=== PATIENT | male | born 1935 | race Caucasian/White ===

== ENCOUNTER → 2017-04-11 | Outpatient (CLI) | payer OTHER ==
[~2017-04-11] MED LIST: AKWA TEARS EYE15 ML OPHTHALMIC; ALPRAZOLAM 0.0.25 M1; AMBIEN 5 MG TABL5 M1 PO; AMLODIPINE BESYL5 MG PO; ASPIRIN81 M2 PO; ATIVAN1 MG PO; BRINTELLIX10 MG PO; CARBAMAZEPINE100 M2; CARBAMAZEPINE200 M2 PO; CELEXA 20 MG TA20 MG PO; CELEXA20 MG PO; CIALIS20 MG PO; CIPROFLOXACIN500 M1 PO; CLONAZEPAM 0.50.5 M1 PO; CLONIDINE0.1 PO; COUMADIN7.5 MG PO; COZAAR 25 MG TA25 M2; DEPAKOTE ER500 MG PO; DESYREL150 MG PO; DESYREL300 MG PO; DESYREL50 MG PO; DETROL1 MG; FLAGYL500 MG PO; GABAPENTIN 100100 MG PO; HYDROCODON-ACE1 EAC5 PO; IBUPROFEN 800800 M1 PO; LASIX 40 MG TAB40 M2 PO; LITHIUM CARBON150 MG; LITHIUM CARBON300 M3 PO; LOPRESSOR25; LOSARTAN POTAS100 MG PO; MELATONIN5 M1 PO; MINOXIDIL2.5 MG PO; MYRBETRIQ25 MG PO; NAFTIN45 GM TOP; NEURONTIN 300300 M1 PO; NIFEDICAL XL60 MG PO; NIZORAL120 ML TOP; NIZORAL120 ML TRANSDERM; NORVASC 2.5 MG2.5 M1; NORVASC10 MG PO; PERCOCET 5-3251 EACH PO; POTASSIUM20; REQUIP 1 MG TABL1 M1 PO; RESTASIS1 EACH OPHTHALMIC; REXULTI3 MG PO; SIMVASTATIN40 MG PO; SYSTANE LIQUID15 ML OPHTHALMIC; TAMSULOSIN HCL0.4 M1 PO; TRAMADOL 50 MG50 MG PO; TRAZODONE 150150 M1; TRAZODONE HCL PO; ZOFRAN ODT4 MG PO; ZYPREXA 2.2.5 MG/1 T PO
== END ==
LOC: ULTRA 12:43
DX: M79.89 Other specified soft tissue disorders (principal); R60.9 Edema, unspecified

== ENCOUNTER 2018-09-27 12:21 | Emergency (ER) | payer OTHER ==
[~2018-09-27] VITALS: Ht 180.3 cm; Wt 90.7 kg
--- NOTE | ~2018-09-27 | EKG ---
[facility] [place] [address] ELECTROCARDIOGRAM REPORT Name: TYREL DEL RIO [id number] Admission: 09/27/18 Attend Phys: Discharge: Date of : 35 Report #: [id number] THIS REPORT FOR: //name// [facility] ED Test Date: 2018-09-27 Test Time: 13:29:57 Pat Name: TYREL DEL IRO Department: Room: Gender: Language Asst: [facility] : 1935 Requested By: Ena Giron Order Number: [id number] MD: Measurements Intervals [place] Rate: 78 P: 52 NJ: 306 QRS: -26 QRSD: 151 T: 58 QT: 426 QTc: 486 Interpretive Statements Sinus rhythm Prolonged [place] interval Right bundle branch block Compared to ECG 12/07/2016 10:17:21 No significant changes [email or web address] By: 1329 1329 Kalyn Mccain MD /EPI
[2018-09-27 12:56] LABS: ABSOLUTE NEUTROPHILS 3.4 thou/uL (1.4-8.2); BASOPHILS 0.7 % (0.0-2.0); EOSINOPHILS 2.1 % (0.0-3.0); HEMATOCRIT 43.9 % (42.0-52.0); HEMOGLOBIN 15.1 gm/dL (14.0-18.0); LYMPHOCYTES 32.8 % (24.0-44.0); MCH 32.6 pg (26.0-34.0); MCHC 34.3 g/dL (28.0-37.0); MCV 94.9 fL (80.0-100.0); MONOCYTES 9.1 % (1.0-8.0); PLATELET COUNT 156 thou/uL (150-400); POLYS 55.3 % (36.0-66.0); RBC 4.62 mil/uL (4.50-6.00); RDW 13.2 % (10.5-14.5); WBC 6.2 thou/uL (4.0-11.0)
[2018-09-27 13:02] LABS: ANION GAP 10 mmol/L (7-16); BUN 30 mg/dL (7-18); CALCIUM 9.2 mg/dL (8.5-10.1); CHLORIDE 106 mmol/L (98-107); CO2 25 mmol/L (21-32); CREATININE 1.6 mg/dL (0.7-1.3); GLUCOSE 153 mg/dL (74-106); POTASSIUM 3.8 mmol/L (3.5-5.1); SODIUM 141 mmol/L (136-145)
[2018-09-27 13:11] LABS: ALBUMIN 3.2 g/dL (3.4-5.0); PROTIME 9.9 Seconds (9.3-11.4); SGOT 15 U/L (15-37); SGPT 19 U/L (30-65); TOTAL BILIRUBIN 0.6 mg/dL (<0.1-1.0); TOTAL PROTEIN 6.8 g/dL (6.4-8.2); TROPONIN-I <0.06 ng/mL (<0.06)
[2018-09-27 14:55] LABS: URINE BILIRUBIN NEGATIVE (Negative); URINE BLOOD NEGATIVE (Negative); URINE CLARITY CLEAR; URINE COLOR YELLOW; URINE GLUCOSE-RANDOM* NEGATIVE (Negative); URINE KETONES NEGATIVE (Negative); URINE LEUKOCYTES-REFLEX NEGATIVE (Negative); URINE NITRITE-REFLEX NEGATIVE (Negative); URINE PROTEIN (DIPSTICK) NEGATIVE (Negative); URINE SPECIFIC GRAVITY 1.015 (1.005-1.035)
[2018-09-27 15:54] VITALS: BP 123/74
[2018-09-28] MEDS ORDERED: DIVALPROEX SOD500 MG PO (05:27)
[2018-09-28] MEDS ORDERED: ANTIVERT25 MG PO (06:26)
== END 2018-09-27 15:56 | disposition home or self-care (01) ==
LOC: ER 12:21
PROVIDERS: Physician Assistant
DX: I95.1 Orthostatic hypotension (principal); R42 Dizziness and giddiness; I12.9 Hypertensive chronic kidney disease with stage 1 through stage 4 chronic kidney disease, or unspecified chronic kidney disease; N18.9 Chronic kidney disease, unspecified; F31.9 Bipolar disorder, unspecified; G47.30 Sleep apnea, unspecified; F41.9 Anxiety disorder, unspecified

== ENCOUNTER 2018-09-28 04:02 | Emergency (ER) | payer OTHER ==
[~2018-09-28] VITALS: Ht 177.8 cm; Wt 90.7 kg
--- NOTE | ~2018-09-28 | EKG ---
[address] [address] ELECTROCARDIOGRAM REPORT Name: TYREL DEL RIO Room #: [facility]#: [id number] Admission: 09/28/18 Attend Phys: Discharge: 09/28/18 Date of : 35 Report #: [id number] THIS REPORT FOR: //name// [facility] ED Test Date: 2018-09-28 Test Time: 04:17:07 Pat Name: TYREL DEL RIO Department: Room: Gender: M Test Lead: [email or web address] : 1935 Requested By: Emmie Benitez Order Number: [id number] MD: Maikel Bain Measurements Intervals [place] Rate: 73 P: 28 ND: 316 QRS: -37 QRSD: 141 T: 74 QT: 428 QTc: 472 Interpretive Statements Sinus rhythm Prolonged ND interval Right bundle branch block Compared to ECG 12/07/2016 10:17:21 No significant changes Electronically Signed On 09-28-2018 20:39:13 GRINDER NEEDLE TIP by Maikel Bain [email or web address] <ELECTRONICALLY SIGNED> By: Maikel Bain MD 09/28/189 6 0417 Maikel Bain MD /MOHIT
[2018-09-28] MEDS ORDERED: DIVALPROEX SOD500 MG PO (05:27)
[2018-09-28] MEDS ORDERED: ANTIVERT25 MG PO (06:26)
[2018-09-28 06:47] VITALS: BP 178/99
== END 2018-09-28 06:47 | disposition home or self-care (01) ==
LOC: ER 04:02
DX: R42 Dizziness and giddiness (principal); G47.30 Sleep apnea, unspecified; F31.9 Bipolar disorder, unspecified; I10 Essential (primary) hypertension; F41.9 Anxiety disorder, unspecified; Z98.890 Other specified postprocedural states

== ENCOUNTER → 2020-06-24 | Outpatient (CLI) | payer OTHER ==
[~2020-06-24] MED LIST changes: +ANTIVERT25 MG PO; +DIVALPROEX SOD500 MG PO
== END ==
LOC: EDSTATUS 09:17 → MRI 09:17
PROVIDERS: ATTEND Nurse Practitioner
DX: S73.102A Unspecified sprain of left hip, initial encounter (principal); M43.08 Spondylolysis, sacral and sacrococcygeal region; M16.11 Unilateral primary osteoarthritis, right hip; N32.3 Diverticulum of bladder; K57.30 Diverticulosis of large intestine without perforation or abscess without bleeding; M71.352 Other bursal cyst, left hip; X58.XXXA Exposure to other specified factors, initial encounter; Y93.89 Activity, other specified; Y92.89 Other specified places as the place of occurrence of the external cause; Y99.8 Other external cause status

== ENCOUNTER → 2020-09-02 | Outpatient (CLI) | payer OTHER | LOC: SJCVC 12:38 | PROVIDERS: ATTEND Internal Medicine Cardiovascular Disease | DX: R94.31 Abnormal electrocardiogram [ECG] [EKG] (principal); I45.10 Unspecified right bundle-branch block; I10 Essential (primary) hypertension; E78.00 Pure hypercholesterolemia, unspecified; G47.33 Obstructive sleep apnea (adult) (pediatric); Z82.49 Family history of ischemic heart disease and other diseases of the circulatory system; Z79.899 Other long term (current) drug therapy ==

== ENCOUNTER → 2020-10-28 | Outpatient (CLI) | payer OTHER | LOC: SJCVCIMAG 08:53 | PROVIDERS: ATTEND Internal Medicine Cardiovascular Disease | DX: I35.1 Nonrheumatic aortic (valve) insufficiency (principal); I44.0 Atrioventricular block, first degree; I45.10 Unspecified right bundle-branch block; I11.9 Hypertensive heart disease without heart failure; R94.31 Abnormal electrocardiogram [ECG] [EKG]; G47.33 Obstructive sleep apnea (adult) (pediatric); I71.2 Thoracic aortic aneurysm, without rupture; Z79.899 Other long term (current) drug therapy ==

== ENCOUNTER 2020-11-21 08:20 | Emergency (ER) | payer OTHER ==
[~2020-11-21] VITALS: Ht 177.8 cm; Wt 99.8 kg
[2020-11-21] MEDS ORDERED: HYDROCODON-ACE1 EA11 PO (10:24)
[2020-11-21 10:49] VITALS: BP 139/70
== END 2020-11-21 10:49 | disposition home or self-care (01) ==
LOC: ER 08:20
DX: S22.41XA Multiple fractures of ribs, right side, initial encounter for closed fracture (principal); L70.8 Other acne; I10 Essential (primary) hypertension; Z79.899 Other long term (current) drug therapy; Z98.890 Other specified postprocedural states; W01.0XXA Fall on same level from slipping, tripping and stumbling without subsequent striking against object, initial encounter; Y93.89 Activity, other specified; Y92.091 Bathroom in other non-institutional residence as the place of occurrence of the external cause; Y99.9 Unspecified external cause status

== ENCOUNTER 2021-04-02 13:07 | Emergency (ER) | payer OTHER ==
[~2021-04-02] VITALS: Ht 177.8 cm; Wt 99.8 kg
[~2021-04-02 13:07] MED LIST changes: +HYDROCODON-ACE1 EA11 PO
[2021-04-02] MEDS ORDERED: PROSCAR 5MG TABL5 M1 PO (13:28)
[2021-04-02] MEDS ORDERED: DONEPEZIL HCL 55 M1 PO (13:29)
[2021-04-02] MEDS ORDERED: NEURONTIN 300M300 M2 PO (13:29)
[2021-04-02] MEDS ORDERED: MELOXICAM7.5 MG PO (13:30)
[2021-04-02] MEDS ORDERED: TROSPIUM CHLORI20 MG PO (13:30)
[2021-04-02] MEDS ORDERED: COZAAR 25 MG TA25 M2 PO (13:30)
[2021-04-02] MEDS ORDERED: NORCO5 PO (14:37)
[2021-04-02 14:43] VITALS: BP 180/92
== END 2021-04-02 14:44 | disposition home or self-care (01) ==
LOC: ER 13:07
DX: S22.41XA Multiple fractures of ribs, right side, initial encounter for closed fracture (principal); M25.511 Pain in right shoulder; Z79.899 Other long term (current) drug therapy; W10.9XXA Fall (on) (from) unspecified stairs and steps, initial encounter; Y93.89 Activity, other specified; Y92.89 Other specified places as the place of occurrence of the external cause; Y99.8 Other external cause status

== ENCOUNTER 2021-10-14 15:10 | Inpatient (IN) | payer OTHER ==
[~2021-10-14] VITALS: Ht 177.8 cm; Wt 93.0 kg
[~2021-10-14 15:10] MED LIST changes: +COZAAR 25 MG TA25 M2 PO; +DONEPEZIL HCL 55 M1 PO; +MELOXICAM7.5 MG PO; +NEURONTIN 300M300 M2 PO; +NORCO5 PO; +PROSCAR 5MG TABL5 M1 PO; +TROSPIUM CHLORI20 MG PO
[2021-10-14 15:14] VITALS: BP 179/99
[2021-10-14 15:51] LABS: ABSOLUTE NEUTROPHILS 5.1 thou/uL (1.4-8.2); BASOPHILS 0.6 % (0.0-2.0); EOSINOPHILS 0.1 % (0.0-3.0); HEMATOCRIT 43.9 % (42.0-52.0); HEMOGLOBIN 14.6 gm/dL (14.0-18.0); LYMPHOCYTES 19.6 % (24.0-44.0); MCH 31.2 pg (26.0-34.0); MCHC 33.2 g/dL (28.0-37.0); MCV 94.1 fL (80.0-100.0); MONOCYTES 13.8 % (1.0-8.0); PLATELET COUNT 147 thou/uL (150-400); POLYS 65.9 % (36.0-66.0); RBC 4.67 mil/uL (4.50-6.00); RDW 13.6 % (10.5-14.5); WBC 7.8 thou/uL (4.0-11.0)
[2021-10-14 16:03] LABS: CALCIUM 8.9 mg/dL (8.5-10.1); CREATININE 1.7 mg/dL (0.7-1.3); POTASSIUM 4.2 mmol/L (3.5-5.1)
[2021-10-14 16:09] LABS: ALBUMIN 3.3 g/dL (3.4-5.0); MAGNESIUM 1.6 mg/dL (1.8-2.4); TOTAL BILIRUBIN 0.5 mg/dL (0.2-1.0); TOTAL PROTEIN 6.9 g/dL (6.4-8.2)
[2021-10-14 16:30] LABS: APTT 27.9 Seconds (24.5-32.8); INR 0.96; PROTIME 10.5 Seconds (10.5-12.1)
[2021-10-14 20:00] VITALS: BP 207/88
[2021-10-14 21:00] VITALS: BP 207/88
[2021-10-15] VITALS: BP 207/88
[2021-10-15 04:00] VITALS: BP 187/95
[2021-10-15 09:00] VITALS: BP 202/102
[2021-10-15 14:54] LABS: FOLIC ACID 15.7 ng/mL (8.6-58.9)
[2021-10-15 16:11] LABS: BE(vivo) -3.3 mmol/L (-2 to +3); HCO3 20.1 mmol/L (22.0-26.0); PO2 74.4 mmHg (80.0-100.0); pH 7.415 (7.360-7.450); sO2 95.3 % (92.0-98.0)
[2021-10-15 22:00] VITALS: BP 183/93
[2021-10-15 23:45] VITALS: BP 180/92
[2021-10-16 03:58] VITALS: BP 190/100
--- NOTE | 2021-10-16 06:10 | NUR ---
PT SLEPT MOST OF THE NIGHT. AT TIMES CONFUSED AND NEEDED REORIENTATION. C/O HEADACHE. PRN PAIN MEDICATION GIVEN. HYDRALAZINE GIVEN FOR HTN. INCONTINENT OF URINE. PT REMAINS IN COVID ISOLATION. SPO2 >92% ON RA. WILL GIVE REPORT TO ONCOMING NURSE.
[2021-10-16 06:47] LABS: ABSOLUTE NEUTROPHILS 3.6 thou/uL (1.4-8.2); BASOPHILS 0.6 % (0.0-2.0); EOSINOPHILS 0.7 % (0.0-3.0); HEMATOCRIT 42.2 % (42.0-52.0); LYMPHOCYTES 23.7 % (24.0-44.0); MCH 31.1 pg (26.0-34.0); MCHC 33.3 g/dL (28.0-37.0); MCV 93.5 fL (80.0-100.0); MONOCYTES 11.3 % (1.0-8.0); PLATELET COUNT 140 thou/uL (150-400); POLYS 63.7 % (36.0-66.0); RBC 4.51 mil/uL (4.50-6.00); RDW 13.5 % (10.5-14.5); WBC 5.7 thou/uL (4.0-11.0)
[2021-10-16 07:03] LABS: ALBUMIN 2.7 g/dL (3.4-5.0); ANION GAP 12 mmol/L (7-16); BUN 23 mg/dL (7-18); CALCIUM 7.8 mg/dL (8.5-10.1); CHLORIDE 109 mmol/L (98-107); CO2 23 mmol/L (21-32); CREATININE 1.3 mg/dL (0.7-1.3); DIRECT BILIRUBIN < 0.1 mg/dL (<0.1-0.2); GLUCOSE 100 mg/dL (74-106); MAGNESIUM 1.6 mg/dL (1.8-2.4); PHOSPHORUS 3.7 mg/dL (2.6-4.7); POTASSIUM 4.1 mmol/L (3.5-5.1); SGOT 18 U/L (15-37); SGPT 14 U/L (16-63); SODIUM 144 mmol/L (136-145); TOTAL BILIRUBIN 0.3 mg/dL (0.2-1.0); TOTAL PROTEIN 6.1 g/dL (6.4-8.2)
[2021-10-16 07:07] LABS: INR 0.97; PROTIME 10.6 Seconds (10.5-12.1)
--- NOTE | 2021-10-16 07:19 | EKG ---
[place] [address] [facility] [place] [address] ELECTROCARDIOGRAM REPORT Name: TYREL DEL RIO Room #: 170-15 ADM IN M.R.#: [id number] Admission: 10/14/21 Attend Phys: Sim Bashir MD Discharge: Date of : 35 Report #: [id number] [facility] ED Test Date: 2021-10-14 Test Time: 15:40:45 Pat Name: TYREL DEL RIO Department: Room: 170 Gender: M Network Developer: joão : 1935 Requested By: Jose Stack Order Number: [id number] MD: Nico Joaquin Measurements Intervals [place] Rate: 78 P: 32 RI: 326 QRS: -40 QRSD: 148 T: 38 QT: 416 QTc: 474 Interpretive Statements Sinus rhythm Prolonged RI interval RBBB Probable left ventricular hypertrophy Compared to ECG 09/28/2018 04:17:07 Left anterior fascicular block now present Electronically Signed On 10-16-2021 7:19:35 VIDEO GAME ANIMATOR by Nico Joaquin [email or web address] <ELECTRONICALLY SIGNED> By: Nico Joaquin MD, [facility] 10/16/21 0719 1540 1540 Nico Joaquin MD, FACC /EPI
[2021-10-16 15:19] VITALS: BP 159/60
[2021-10-16] MEDS ORDERED: TROSPIUM CHLORI20 MG PO (15:40)
[2021-10-16] MEDS ORDERED: SEROQUEL 100 M100 M1 PO (15:41)
[2021-10-16] MEDS ORDERED: DEPAKOTE500 MG PO (15:41)
[2021-10-16] MEDS ORDERED: RISPERDAL 1 MG T1 MG PO (15:42)
[2021-10-16] MEDS ORDERED: FLOMAX0.4 MG PO (15:42)
[2021-10-16] MEDS ORDERED: NEURONTIN600 MG PO (15:42)
[2021-10-16] MEDS ORDERED: PROTOPIC OINTME30 GM TOP (15:43)
[2021-10-16] MEDS ORDERED: MOBIC7.5 MG PO (15:43)
[2021-10-16 22:57] VITALS: BP 172/86
--- NOTE | 2021-10-17 00:04 | NUR ---
CURRENTLY ON ROOM AIR. 93% ON ROOM AIR. DENIES PAIN. DIFFICULTY ASKING QUESTIONS SECONDARY TO POOR HEARING. HE GAIN LITTLE TO NO BENEFIT FROM HIS HEARING AIDS. HE IS RECIVING HIS REMDESIVIR AT THIS TIME. ORIENTED TO ROOM AND SURROUNDINGS.
[2021-10-17 05:16] VITALS: BP 143/77
[2021-10-17 07:04] LABS: ALBUMIN 2.6 g/dL (3.4-5.0); CALCIUM 7.9 mg/dL (8.5-10.1); CREATININE 1.3 mg/dL (0.7-1.3); DIRECT BILIRUBIN 0.1 mg/dL (<0.1-0.2); PHOSPHORUS 3.9 mg/dL (2.5-4.9); POTASSIUM 3.8 mmol/L (3.5-5.1); TOTAL BILIRUBIN 0.3 mg/dL (0.2-1.0); TOTAL PROTEIN 5.9 g/dL (6.4-8.2)
[2021-10-17 08:09] VITALS: BP 175/86
--- NOTE | 2021-10-17 09:49 | HC ---
[facility] [place] [address] CONSULTATION Name: TYREL DEL RIO Room #: 351-P ADM IN M.R.#: [id number] Admission: 10/14/21 Attend Phys: Sim Bashir MD Discharge: Date of : 35 Report #: [id number] THIS REPORT FOR: cc: Gabe Siu MD, Neal A. MD Kerstein, Andrew H. DO ~ DATE OF SERVICE: 10/15/2021 INPATIENT PSYCHIATRY CL CONSULTATION PRIMARY ATTENDING: Sim Bashir MD and his SWITCH FOREMAN Cee Luna, additional solutions consultant on this case has been Dr. Terry Dupree, Neurology. CONSULTING PSYCHIATRIST: Carson May DO REASON FOR CONSULTATION: Altered mental status. SOURCES OF INFORMATION: Bedside interview with the patient and personal protective equipment, telephone conversation with his daughter, Dacia, review of the medical chart as well as numerous consultations. CHIEF COMPLAINT: "I came for dehydration." HISTORY OF PRESENT ILLNESS: This is an 86-year-old, age-appearing male, in room 15. He is boarding in the Emergency Room at [facility]. The patient was brought in yesterday for evaluation of "altered mental status." He lives with his at home and the noted he was much more lethargic than usual, was having difficulty speaking. Unclear last known normal; however, the believes it was sometime yesterday, the patient was able to answer basic questions. Denied active complaints. The patient was reported to have his Seroquel adjusted due to recent manic episode when I clarified what kind of episode this was with the daughter, she said he did not require psychiatric hospitalization. He had been under treatment of the psychiatrist, Dr. Mike Yang who about 6 weeks ago of [employer], currently his primary care provider is Dr. Gabe Siu. The patient denied fever or chills. Denies chest pain, shortness of breath. There is a history of transient ischemic attacks. 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 SURGICAL HISTORY: Lumbar laminectomy. 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 His daughter reported to me that Dr. Yang prior to his had been filling back his medications. His home medications [address] [address] CONSULTATION Name: TYREL DEL RIO Room #: 351-P [facility] IN .R.#: [id number] Admission: 10/14/21 Attend Phys: Sim Bashir MD Discharge: Date of : 35 Report #: [id number] are noted to be carbamazepine, tamsulosin, tadalafil, which is Cialis, amlodipine, clonazepam, Depakote, zolpidem, vortioxetine, brexpiprazole, Depakote, finasteride, gabapentin, donepezil, losartan, meloxicam and trospium. I do not think that is an accurate medication list. ALLERGIES: No known allergies. SOCIAL HISTORY: No smoking. Drinks alcohol. It does not sound like there is abuse of scenario. No recreational drug use. REVIEW OF SYSTEMS: From the ER yesterday: CONSTITUTIONAL: Denies fever, chills, malaise, or unexplained weight change. EYES: Denies eye pain, visual change, or discharge. HEENT: Denies hearing changes, ear drainage, ear infections, ear pain, neck pain or neck stiffness. RESPIRATORY: Denies cough, shortness of breath, hemoptysis or respiratory distress. CARDIOVASCULAR: Denies chest pain, chest pain with exertion or edema. GASTROINTESTINAL: Denies abdominal pain, nausea, vomiting or diarrhea. GENITOURINARY: Denies burning, frequency or dysuria. MUSCULOSKELETAL: Denies back pain, joint pain, muscle weakness or myalgias. SKIN: Denies rash. NEUROLOGIC: Denies weakness, headaches or loss of consciousness. Otherwise, 10-point review of systems was negative in the ER. His weight is 99.79 kilos. PHYSICAL EXAMINATION: NEUROLOGIC: His physical exam was grossly normal on the neuro exam, 5/5 bilateral upper extremities. No cranial nerve deficit No visual gonzalez, no limb ataxia. No dysarthria. The patient is able to repeat all words well. He does have aphasia, has significant difficulty with word finding. He is able to identify objects. He is unable to describe the scene and has difficulty even in calling his name. This was all in the ER. His NIH stroke scale was a total score of 4. EKG was done showed right bundle branch block, non-STEMI. Intervals from electrocardiogram are QTc 474, QT 416, [place] interval prolonged at 326 milliseconds. So, he had a first-degree AV block and right bundle branch block. VITAL SIGNS: Temperature 36.8, pulse 75, respirations 16, BP 183/93, previously it was 202/110. GENERAL: Well-developed, age, ill-appearing male, in hospital [facility], in hospital bed in the Emergency Room. MENTAL STATUS EXAMINATION: This is a well-developed, somewhat ill-appearing male. Attention and concentration fair. He is hard of hearing. [facility] [place] [address] CONSULTATION Name: TYREL DEL RIO Room #: 351-P ADM IN M.R.#: [id number] Admission: 10/14/21 Attend Phys: Sim Bashir MD Discharge: Date of : 35 Report #: [id number] Speech normal rate, volume, and tone. Thought Process: Linear and goal directed. Thought content focused on watching football. Stated he came to the ER for dehydration. Denied suicidal or homicidal ideation, auditory or visual type hallucinations and helplessness, hopelessness. Mood and affect were okay, congruent, euthymic, fair range. Memory not formally tested. Insight and judgment fair to limited. Fund of knowledge average. DIAGNOSES: At this time, neurocognitive disorder, unspecified. The other issues are obesity, hypertension, remote history of bipolar disorder, not currently meeting criteria for an active episode. PLAN: From a psychiatric standpoint, recommend management as an outpatient. No need for inpatient psychiatric medications. I spoke with the daughter, it sounds like the family was not inclined to medicate , so I discontinued the Seroquel. I previously ordered for good measure, I had ordered ammonia and ABG, both of those were not received. I have a low likelihood at this point that there is a concern, but those results can certainly be reviewed. Laboratories on this case were reviewed, they are grossly normal like his Depakote level was 20, pretty low. So, recommend outpatient followup. Time spent on this case about 45 minutes. Case discussed with Cee Luna the Hospitalist GABRIELLE on duty for the patient. <ELECTRONICALLY SIGNED> By: Carson May DO 10/17/21 0949 1417 2111 Carson May DO /nt
[2021-10-17 09:51] VITALS: BP 131/72
[2021-10-17 11:47] VITALS: BP 100/66
--- NOTE | 2021-10-17 14:14 | NUR ---
INITIAL ASSESSMENT: Received consult. KEV reviewed chart and spoke with nursing and attending physician. Pt was admitted from home due to possible CVA. Pt did have positive COVID test in the ER. Pt placed in Enhanced Isolation. Pt is afebrile and on room air. Pt has been started on Remdesivir. MRI ordered today. 5N consulted. KEV placed call to pt's room. No answer. Per chart, pt is [place]. KEV spoke with pt's dtr, Dacia, via phone. Introduced role of SW. Pt is normally alert/orientated x 4. Pt lives at home with his , who also has COVID. Pt's dtr states that pt was having trouble speaking and was brought to the ER for stroke like symptoms. Pt has received the G-cluster COVID vaccination and booster. Prior to admission, pt was independent with ADLs. Pt has been using a walker due to unsteady gait. No stairs to navigate. Pt's PCP is Dr. Siu. Pt has been to [facility] in September of 2013. Pt's family is having pt's hearing aids replaced. KEV discussed discharge needs: possible rehab v. SNF v. home with HH. Pt's family is agreeable with post-acute placement, as pt's is recovering at home and unable to provide care for pt at this time. Awaiting results of MRI and 5N consult. KEV discussed visitor policy with pt's dtr and provided contact info for SW and 3W. Pt's dtr requests to speak with a physician tomorrow regarding plan of care. KEV is following to assist as needed with discharge planning.
[2021-10-17 15:31] VITALS: BP 136/79
--- NOTE | 2021-10-17 17:51 | NUR ---
PT ALERT AND ORIENTED TIMES THREE. VSS, RA. SLOW TO RESPOND AND VERY HARD OF HEARING. PT DENIES PAIN/SOA. PT WORKED WELL WITH PT/OT TODAY. UP SITING IN THE CHAIR FOR MOST OF THE DAY. SPOKE WITH PT DAUGHTER TODAY TO UPDATE ON CARE. POSSIBLE PLANS TO TRANSFER TO [facility] TOMORROW. WILL CONTINUE TO MONITOR.
[2021-10-17 19:33] VITALS: BP 113/68
--- NOTE | 2021-10-17 23:58 | HC ---
[facility] [place] [address] CONSULTATION Name: TYREL DEL RIO Room #: 351-P ADM IN M.R.#: [id number] Admission: 10/14/21 Attend Phys: Sim Bashir MD Discharge: Date of : 35 Report #: [id number] THIS REPORT FOR: cc: Gabe Siu MD, Neal A. MD Geha,Dung Freire MD ~ DATE OF SERVICE: 10/15/2021 INFECTIOUS DISEASES CONSULTATION REASON FOR CONSULTATION: I was asked to evaluate concerning COVID-19 infection and altered mental status. HISTORY OF PRESENT ILLNESS: The patient is an 86-year-old, underlying history with bipolar disorder and hypertension. He has been previously COVID vaccinated. He lives at home with his , who noticed lethargy and difficulty speaking yesterday; therefore, he was brought into the Emergency Room for further evaluation. Recently, he has been having more of a manic episode of his bipolar disorder, noting adjustment in Seroquel. He has had no trauma reported. No history of seizure disorder or stroke. When he presented to the Emergency Room, he had aphasic findings, which has subsequently resolved. Neurology evaluation did recommend further imaging. He has had no fever, chills or sweats. No cough or sputum production. No nausea, vomiting or diarrhea. He is incontinent of urine. He is very hard of hearing. Screening, COVID testing was positive. Chest x-ray was clear. Oxygen saturation has been above 95%. REVIEW OF SYSTEMS: A 14-point review was negative other than what has been described above. ALLERGIES: No known. MEDICATIONS: As noted on his MAR, which were reviewed. PAST MEDICAL HISTORY: Obstructive sleep apnea, bipolar disorder, hypertension, overactive bladder, spinal stenosis, right rotator cuff repair, lumbar laminectomy, anxiety, depression, TIA in 2013, lithium toxicity in 2013. FAMILY HISTORY: Negative for tuberculosis. SOCIAL HISTORY: Nonsmoker, no significant alcohol intake. Lives with his . PHYSICAL EXAMINATION: GENERAL: He was afebrile, initially hypertensive, but that is stabilized. He was of normal weight. SKIN: He had multiple actinic keratoses and xerosis. HEENT: Eyes without scleral icterus and mouth without mucositis. [address] [address] CONSULTATION Name: TYREL DEL RIO Room #: 351-P [facility] IN M.R.#: [id number] Admission: 10/14/21 Attend Phys: Sim Bashir MD Discharge: Date of : 35 Report #: [id number] NECK: Supple. LUNGS: Clear. HEART: Regular, without murmur, gallop or rub. ABDOMEN: Soft and nontender. NEUROLOGIC: Cranial nerves were intact. His speech was clear. He was very hard of hearing. Strength in upper and lower extremities was normal. The patient was able to sit up in bed without issue. LABORATORY DATA: Reviewed. MICROBIOLOGY: Reviewed. IMAGING: Chest x-ray reviewed. CT scan of the head reviewed. IMPRESSION: An 86-year-old presents with COVID-19 infection associated with altered mental status and transient aphasia in the setting of bipolar disease, hypertension and acute kidney disease. RECOMMENDATION: Would be a candidate for monoclonal antibody or enteral antiviral therapy, but he is now hospitalized and we do not have access to these agents. Given the fact that he has altered mental status associated with COVID-19, would recommend remdesivir without corticosteroids at this point. We will await further imaging. Follow his O2 saturations and chest x-ray and continue with isolation procedures. <ELECTRONICALLY SIGNED> By: Dung Peraza MD 10/17/21 2358 1735 2111 Dung Peraza MD /nt
[2021-10-18 04:03] VITALS: BP 137/81
[2021-10-18 07:20] VITALS: BP 149/81
[2021-10-18 07:48] LABS: HEMATOCRIT 38.3 % (42.0-52.0); HEMOGLOBIN 13.1 gm/dL (14.0-18.0); MCH 31.6 pg (26.0-34.0); MCHC 34.2 g/dL (28.0-37.0); MCV 92.3 fL (80.0-100.0); RBC 4.15 mil/uL (4.50-6.00); RDW 13.6 % (10.5-14.5)
[2021-10-18 08:09] LABS: ALBUMIN 2.5 g/dL (3.4-5.0); ANION GAP 10 mmol/L (7-16); BUN 32 mg/dL (7-18); CHLORIDE 108 mmol/L (98-107); CO2 25 mmol/L (21-32); CREATININE 1.9 mg/dL (0.7-1.3); DIRECT BILIRUBIN < 0.1 mg/dL (<0.1-0.2); GLUCOSE 94 mg/dL (74-106); PHOSPHORUS 3.7 mg/dL (2.5-4.9); POTASSIUM 3.7 mmol/L (3.5-5.1); SGOT 11 U/L (15-37); SGPT 10 U/L (30-65); SODIUM 143 mmol/L (136-145); TOTAL BILIRUBIN 0.2 mg/dL (0.2-1.0); TOTAL PROTEIN 5.6 g/dL (6.4-8.2)
--- NOTE | 2021-10-18 11:33 | NUR ---
KEV reviewed chart and spoke with nursing and attending physician. Pt remains in Enhanced Isolation due to COVID. Pt is afebrile and on room air. Pt is on Remdesivir. Case discussed with 5N rehab spec. Pt has been evaluated by 5N and is able to be admitted to rehab pending MRI results. MRI scheduled for 1500 today. Pt is agreeable with plan. KEV received voice message from pt's dtr, Marleny, regarding discharge. SW returned call and left voice message. Pt will remain on 3W until out of isolation. KEV is following to assist as needed with discharge planning.
[2021-10-18] MEDS ORDERED: CLONAZEPAM 0.50.5 M1 PO (11:49)
[2021-10-18] MEDS ORDERED: MIRALAX17 GM PO (11:53)
[2021-10-18] MEDS ORDERED: VITAMIN D325 MC2 PO (11:53)
[2021-10-18] MEDS ORDERED: TYLENOL325 MG PO (11:53)
[2021-10-18] MEDS ORDERED: VITAMIN C1000 MG PO (11:53)
[2021-10-18] MEDS ORDERED: ZINC SULFATE50 MG PO (11:53)
[2021-10-18] MEDS ORDERED: CARBAMAZEPINE200 M2 PO (11:53)
[2021-10-18 12:03] VITALS: BP 137/78
--- NOTE | 2021-10-18 12:50 | NUR ---
DICHARGE NOTE: GIVEN PAPERWORK FOR DISCHARGE WELL NEW MEDICATION INFORMATION. WILL DC TO REHAB STATUS AND STAY IN SAME ROOM. WILL DC TELEMETRY. WILL CONTINUE TO MONITOR.
== END 2021-10-18 14:39 | DRG 177 ==
LOC: ER 15:10 → EROBS 17:10 → 3W 17:10 → EROBS 21:17 → 3W 10-16 22:30
PROVIDERS: Emergency Medicine; Hospitalist; Nurse Practitioner; Psychiatry & Neurology Psychiatry; Specialist; ADMIT Internal Medicine; ATTEND Internal Medicine
PROC: XW033E5 Introduction of Remdesivir Anti-infective into Peripheral Vein, Percutaneous Approach, New Technology Group 5 (ICD-10-PCS; principal; 2021-10-15)
DX: U07.1 COVID-19 (principal); G93.41 Metabolic encephalopathy; J12.82 Pneumonia due to coronavirus disease 2019; N17.9 Acute kidney failure, unspecified; R47.01 Aphasia; J98.11 Atelectasis; F31.9 Bipolar disorder, unspecified; R41.9 Unspecified symptoms and signs involving cognitive functions and awareness; F41.9 Anxiety disorder, unspecified; G47.33 Obstructive sleep apnea (adult) (pediatric); E66.01 Morbid (severe) obesity due to excess calories; R53.81 Other malaise; R26.89 Other abnormalities of gait and mobility; I16.0 Hypertensive urgency; I12.9 Hypertensive chronic kidney disease with stage 1 through stage 4 chronic kidney disease, or unspecified chronic kidney disease; N18.9 Chronic kidney disease, unspecified; E83.42 Hypomagnesemia; E86.0 Dehydration; Z68.29 Body mass index [BMI] 29.0-29.9, adult; Z86.73 Personal history of transient ischemic attack (TIA), and cerebral infarction without residual deficits
CPT/HCPCS: 10879

== ENCOUNTER 2021-10-18 13:36 | Inpatient (IN) | payer OTHER ==
[~2021-10-18] VITALS: Ht 177.8 cm; Wt 93.9 kg
[~2021-10-18 13:36] MED LIST changes: +DEPAKOTE500 MG PO; +FLOMAX0.4 MG PO; +MIRALAX17 GM PO; +MOBIC7.5 MG PO; +NEURONTIN600 MG PO; +PROTOPIC OINTME30 GM TOP; +RISPERDAL 1 MG T1 MG PO; +SEROQUEL 100 M100 M1 PO; +TYLENOL325 MG PO; +VITAMIN C1000 MG PO; +VITAMIN D325 MC2 PO; +ZINC SULFATE50 MG PO
[2021-10-18 15:51] VITALS: BP 152/86
--- NOTE | 2021-10-18 17:24 | NUR ---
ADMISSION NOTE: PT ADMITTED TO REHAB STATUS TODAY. PT NOW ON MS STATUS, NO TELEMETRY. PT TO STAY IN SAME ROOM PREVIOUS ADMISSION. PT ORIENTION A/O X2. NO COMPLAINTS OF PAIN. CONSENTS VERBALLY SIGNED DUE TO COVID. PT CURRENTLY USING BRIEFS AND HAS BEEN INCONTINENT X 2 TODAY, WILL VOID IN URINAL WITH ENCOURAGEMENT. PT FAMILY UPDATED. PT EXTREMELY [place]. CALL LIGHT AND BESIDE TABLE WITHIN REACH. WILL CONTINUE TO MONITOR.
[2021-10-18 19:45] VITALS: BP 157/87
--- NOTE | 2021-10-18 22:44 | NUR ---
PT ALERT AND ORIENTED X2. PT IS VERY [place]. SPEECH IS STILL SLURRED BUT CLEAR ENOUGH TO BE UNDERSTOOD. COMMUNICATES ON CLIPBOARD AND TEXTS. HE CAN HEAR IF YOU SPEAK VERY LOUDLY. BP MODERATELY ELEVATED. OTHER VS STABLE. SATS WNL ON RA. BED DOWN. CALL LIGHT IN REACH. BED ALARM IS ON. I SPOKE WITH PT'S DAUGHTER REGARDING HOME MEDS. PT'S AND PT ARE NOT GOOD HISTORIANS REGARDING MEDICATIONS. MRI RESULTS CALLED AND READ BY HIREN WARREN. PT RESTING QUIETLY PRESENTLY SLEEPING.
--- NOTE | 2021-10-19 06:08 | NUR ---
PT RESTING QUIETLY SLEEPING. NO S/S DISTRESS.
[2021-10-19 07:04] VITALS: BP 179/90
--- NOTE | 2021-10-19 08:55 | NUR ---
INITIAL REHAB ASSESSMENT: Received consult. KEV reviewed chart and spoke with nursing and attending physician. Pt was admitted from home due to possible CVA. Pt did have positive COVID test in the ER. Pt placed in Enhanced Isolation. Pt is afebrile and on room air. Pt has been started on Remdesivir. Pt was admitted to rehab yesterday. Will remain on 3W until out of isolation. KEV has spoken with both of pt's dtrs, Dacia and Marleny, via phone. Pt's dtr Marleny is an OT at [employer] [facility]. Pt is normally alert/orientated x 4. Pt lives at home with his , who also has COVID. Pt's dtr states that pt was having trouble speaking and was brought to the ER for stroke like symptoms. Pt has received the Ceregene COVID vaccination and booster. Prior to admission, pt was independent with ADLs. Pt has been using a walker due to unsteady gait. No stairs to navigate. Pt's PCP is Dr. Siu. Pt has been to [facility] in September of 2013. Pt's family is having pt's hearing aids replaced. KEV discussed visitor policy with pt's dtr and provided contact info for SW and 3W. Plan is for pt to discharge home with HH when medically stable. KEV discussed options for HH providers. No preference voiced. Pt's dtr, Marleny, requests to be the point of contact regarding discharge planning. Team conference to be held this afternoon. Rehab CM is following to assist as needed with discharge planning.
[2021-10-19 10:40] VITALS: BP 179/90
--- NOTE | 2021-10-19 13:03 | NUR ---
Team, recommendation: time voids. Isolation covid. Coughing during meals. increased tremors. mech soft with chopped meats, thin liquid. getting chest x-ray. moderate to severe memory and cognition. very OSAGE. 13/05 supervision if he was able to be dc soon. Cont. working with therapy. Re team.
[2021-10-19 14:16] VITALS: BP 148/86
[2021-10-19 15:22] VITALS: BP 149/85
[2021-10-19 15:39] LABS: BASOPHILS 0.3 % (0.0-2.0); EOSINOPHILS 2.3 % (0.0-3.0); HEMOGLOBIN 13.5 gm/dL (14.0-18.0); MCH 30.8 pg (26.0-34.0); MCHC 32.9 g/dL (28.0-37.0); MCV 93.6 fL (80.0-100.0); PLATELET COUNT 144 thou/uL (150-400); POLYS 59.4 % (36.0-66.0); RBC 4.38 mil/uL (4.50-6.00); RDW 13.8 % (10.5-14.5); WBC 6.7 thou/uL (4.0-11.0)
[2021-10-19 15:58] LABS: CALCIUM 8.3 mg/dL (8.5-10.1); CREATININE 1.9 mg/dL (0.7-1.3); POTASSIUM 4.1 mmol/L (3.5-5.1)
--- NOTE | 2021-10-19 18:10 | NUR ---
RESUMED PT CARE THIS AM. REPORTED FROM RECORDING STUDIO INTERN PT SLEPT ALL NIGHT. PT SLEPT ALL DAY YESTERDAY (10/18) FOR THIS RN. PT SLEPT ALL DAY FOR THIS RN AGAIN. PT UNINTERESTED IN FOOD OR DRINKING. PT TREMORS MUCH WORSE TODAY THAN YESTERDAY, UNABLE TO HOLD CUP UP TO DRINK. PT ONLY TAKING SIPS WITH MEDICATIONS. THIS RN IS UNABLE TO GET UA THIS SHIFT DUE TO DEHYDRATION. BLADDER SCANNED PT APPROX 1800 AND ONLY 272 IN BLADDER. PT HAD ORDER FOR IV FLUIDS AND QUICKLY BECAME ALERT AND AWAKE AFTER START OF FLUIDS. POOR FOOD INTAKE TODAY DUE TO DROWSINESS. PT DENIES NEEDS SUSAN, WILL CONTINUE TO MONITOR.
[2021-10-19 19:11] VITALS: BP 150/83
[2021-10-19 21:15] LABS: URINE BILIRUBIN NEGATIVE (Negative); URINE BLOOD NEGATIVE (Negative); URINE CLARITY CLEAR; URINE COLOR YELLOW; URINE GLUCOSE-RANDOM* NEGATIVE (Negative); URINE KETONES TRACE (Negative); URINE LEUKOCYTES-REFLEX NEGATIVE (Negative); URINE NITRITE-REFLEX NEGATIVE (Negative); URINE PROTEIN (DIPSTICK) NEGATIVE (Negative); URINE UROBILINOGEN 0.2 E.U./dl (0.2-1.0)
[2021-10-20] VITALS (8 sets, daily range): BP systolic 149–190; BP diastolic 76–101
--- NOTE | 2021-10-20 03:07 | NUR ---
continues on room air. encouraged po water intake. he sips on water and takes very little at a time. continues iv fluids. adequate urine output this shift. urine specimen sent this shift. resting at this time.
[2021-10-20 08:06] LABS: ABSOLUTE NEUTROPHILS 3.2 thou/uL (1.4-8.2); BASOPHILS 0.7 % (0.0-2.0); EOSINOPHILS 3.5 % (0.0-3.0); HEMATOCRIT 39.2 % (42.0-52.0); LYMPHOCYTES 30.2 % (24.0-44.0); MCH 30.7 pg (26.0-34.0); MCHC 33.3 g/dL (28.0-37.0); MCV 92.3 fL (80.0-100.0); MONOCYTES 8.7 % (1.0-8.0); PLATELET COUNT 117 thou/uL (150-400); POLYS 56.9 % (36.0-66.0); RBC 4.24 mil/uL (4.50-6.00); RDW 13.9 % (10.5-14.5); WBC 5.6 thou/uL (4.0-11.0)
[2021-10-20 08:48] LABS: CALCIUM 7.9 mg/dL (8.5-10.1); CREATININE 1.4 mg/dL (0.7-1.3); POTASSIUM 3.9 mmol/L (3.5-5.1)
--- NOTE | 2021-10-20 17:22 | NUR ---
RESUMED CARE THIS AM. PT MORE ALERT THIS MORNING, LESS TREMORS. PT LESS ALERT THIS AFTERNOON. PT HAS POOR ORAL INTAKE OF FOOD AND DRINK. PT SIT IN CHAIR MOST OF SHIFT. FALL PRECAUTIONS IN PLACE. WILL CONTINUE TO MONITOR.
[2021-10-21 03:40] VITALS: BP 150/77
--- NOTE | 2021-10-21 06:45 | NUR ---
ASSUMED CARE AT 1900, PT ASSISTED TO BED, LAYING COMFORTABLY, TOILETED AND REPOSITIONED NEEDED, COMPLIANT TO TX, TOOK MEDICATIONS A PILL AT A TIME IN APPLE SOURCE TOLERATED WELL, NO ADVERSE REACTION NOTED, NO PAIN OR DISCOMFORT NOTED, CALL LIGHT WITHIN REACH WILL CONTINUE TO MONITOR.
[2021-10-21 07:20] VITALS: BP 168/64
[2021-10-21 14:29] VITALS: BP 172/94
[2021-10-21 18:43] VITALS: BP 135/80
[2021-10-21] MEDS ORDERED: SEROQUEL 100 M100 M1 PO (19:59)
--- NOTE | 2021-10-22 03:56 | NUR ---
PT SLOWLY PROGRESSING TOWARD GOALS. PT VERY HARD OF HEARING, TOOK HS MEDICATIONS WHOLE, ONE AT A TIME, IN APPLESAUCE, AND APPROPRIATELY SWALLOWED WITH EACH BITE. PT HAS BEEN RESTING COMFORTABLY THROUGHOUT THE SHIFT. VSS. WILL CONTINUE TO OBSERVE FOR CHANGES
[2021-10-22 04:14] VITALS: BP 177/103
[2021-10-22 07:05] VITALS: BP 161/98
--- NOTE | 2021-10-22 17:35 | NUR ---
RESTING IN BED MOST OF DAY, UPPER [place] BUT ANSWERING QUESTIONS WITH YES OR NO ANSWERS. APPEARS TO BE MORE ALERT THIS EVENING, STATES 'YUCK' WHEN DINNER WAS PRESENTED TO HIM. SWALLOWING WITHOUT DIFFICULTY, TAKING PILLS WHOLE IN APPLESAUCE ONE AT A TIME. FALL PRECAUTIONS MAINTAINED.
[2021-10-22 19:20] VITALS: BP 140/82
--- NOTE | 2021-10-22 22:15 | NUR ---
PT SLEEPING IN BED. IVF INTACT. PT NODDING YES AND NO TO NURSES WRITTEN QUESTIONS. PT COMPLIANT WITH MEDS IN APPLESAUCE. DAPHNIE TO IVAN. BED ALARM ON. RLE EDEMA.
[2021-10-23 02:43] VITALS: BP 138/87
[2021-10-23 05:41] LABS: HEMATOCRIT 41.6 % (42.0-52.0); HEMOGLOBIN 13.7 gm/dL (14.0-18.0); MCH 30.8 pg (26.0-34.0); MCHC 32.9 g/dL (28.0-37.0); MCV 93.6 fL (80.0-100.0); RBC 4.44 mil/uL (4.50-6.00); RDW 14.2 % (10.5-14.5); WBC 6.5 thou/uL (4.0-11.0)
[2021-10-23 05:59] LABS: CALCIUM 8.4 mg/dL (8.5-10.1); CREATININE 1.3 mg/dL (0.7-1.3); POTASSIUM 4.3 mmol/L (3.5-5.1)
[2021-10-23 07:26] VITALS: BP 154/93
[2021-10-23 12:14] LABS: URINE BILIRUBIN NEGATIVE (Negative); URINE BLOOD NEGATIVE (Negative); URINE CLARITY CLEAR; URINE COLOR YELLOW; URINE GLUCOSE-RANDOM* NEGATIVE (Negative); URINE KETONES 1+ (Negative); URINE LEUKOCYTES NEGATIVE (Negative); URINE NITRITE NEGATIVE (Negative); URINE PROTEIN (DIPSTICK) NEGATIVE (Negative); URINE UROBILINOGEN 0.2 E.U./dl (0.2-1.0)
[2021-10-23 13:10] LABS: ALBUMIN 2.8 g/dL (3.4-5.0); CALCIUM 8.9 mg/dL (8.5-10.1); CREATININE 1.4 mg/dL (0.7-1.3); POTASSIUM 4.6 mmol/L (3.5-5.1); TOTAL BILIRUBIN 0.3 mg/dL (0.2-1.0); TOTAL PROTEIN 6.1 g/dL (6.4-8.2)
[2021-10-23 13:16] VITALS: BP 154/93
[2021-10-23 13:16] LABS: ALBUMIN 2.8 g/dL (3.4-5.0); DIRECT BILIRUBIN 0.1 mg/dL (<0.1-0.2); TOTAL BILIRUBIN 0.2 mg/dL (0.2-1.0); TOTAL PROTEIN 5.6 g/dL (6.4-8.2)
--- NOTE | 2021-10-23 14:24 | NUR ---
Cont in enhanced covid isolation. Noted on Room air, not currently requiring any oxygen. Cont. therapy and re-team.
[2021-10-23 15:23] VITALS: BP 160/95
--- NOTE | 2021-10-23 17:26 | NUR ---
PT A/O X 4 TODAY. PT ACCURATELY ABLE TO ANSWER QUESTIONS TO THIS RN THIS AM. PT HAS VERY POOR INTAKE, NS DC'D AND PPN GOING AT 80. PT UP TO CHAIR THIS AM. SPEECH THERAPY OBSERVED PT POCKETING SALIVA AND UNABLE TO SWALLOW APPROPRIATELY AT LUNCHTIME. PT CURRENTLY NPO. SPEECH TO ALLOW THIS RN TO GIVE PT 1 ICE CHIP AT A TIME IF PT SPECIFICALLY ASKS FOR LIQUIDS. SPOKE WITH PT FAMILY AND GAVE UPDATE. FALL PRECAUTIONS IN PLACE. WILL CONTINUE TO MONITOR.
[2021-10-23 19:28] VITALS: BP 161/89
[2021-10-24 04:30] VITALS: BP 154/47
--- NOTE | 2021-10-24 04:31 | NUR ---
ASSUMED PT CARE AT 1900.PT OBSERVED LYING ON HIS BED WITH HIS [facility]PT DENIED PAIN SO FAR.PT [place] BUT ABLE TO ANSWER YES/NO QUESTIONS.PT LOST HIS IV ACCESS,NEW ONE ON HIS LFA.PT REPOSITIONED WHILE IN BED.PT INCONT,EXTERNAL CONDOM CATH IN PLACE.PT CONT ON PPN AT 80ML/HR.PT SLEEPING OFF NAD ON THROUGHOUT SHIFT.FALL AND ISOLATION PRECAUTIONS MAINTAINED.
[2021-10-24 07:13] VITALS: BP 173/97
--- NOTE | 2021-10-24 09:20 | NUR ---
Obtain current weight to assess for malnutrition.
--- NOTE | 2021-10-24 14:32 | NUR ---
voice message from his daughter mariela [phone], concerns about medication. Cm called her back, left message and passed on this information to SAMPLE BOX MAKER to call his daughter mariela.
[2021-10-24 21:51] VITALS: BP 146/86
--- NOTE | 2021-10-25 03:18 | NUR ---
patient aox1 confused. patient is chicken ranch. patient on ppn, infusing at a rate of 80 ml/hr. patient refused c pap at night, no soa or distress noted this shift. patient took meds with ease whole with applesause. patient incontient pericare and barrier cream applied as needed. fall precaution in place. patient in bed asleep at this time breathing regular and unlaboured.
[2021-10-25 05:15] LABS: CALCIUM 8.9 mg/dL (8.5-10.1); CREATININE 1.4 mg/dL (0.7-1.3); MAGNESIUM 2.1 mg/dL (1.8-2.4); POTASSIUM 4.3 mmol/L (3.5-5.1)
[2021-10-25 05:19] LABS: ABSOLUTE NEUTROPHILS 5.5 thou/uL (1.4-8.2); BASOPHILS 0.4 % (0.0-2.0); EOSINOPHILS 0.3 % (0.0-3.0); HEMATOCRIT 39.5 % (42.0-52.0); LYMPHOCYTES 23.1 % (24.0-44.0); MCH 31.2 pg (26.0-34.0); MCHC 32.9 g/dL (28.0-37.0); MCV 94.9 fL (80.0-100.0); MONOCYTES 12.1 % (1.0-8.0); PLATELET COUNT 188 thou/uL (150-400); POLYS 64.1 % (36.0-66.0); RBC 4.16 mil/uL (4.50-6.00); WBC 8.6 thou/uL (4.0-11.0)
[2021-10-25 05:38] VITALS: BP 155/98
[2021-10-25 08:23] VITALS: BP 156/105
[2021-10-25 11:52] LABS: POTASSIUM 4.5 mmol/L (3.5-5.1)
[2021-10-25 20:40] VITALS: BP 164/84
--- NOTE | 2021-10-25 23:39 | NUR ---
PT ASSESSMENT COMPLETED AND VSS. MEDS GIVEN ORDERED AND WELL TOLERATED. FALL PRECAUTIONS IN PLACE. DAY RNS ATTEMPTED TO PLACE IV AND WERE UNABLE. ATTEMPTED 2 TIMES WELL. CONTACTED HOUSE SUP. VERY BUSY. CONTACTED CROSSCUTTER ROLLED GLASS ANGELICA. PER ORDERS ATTEMPT IV AND IF UNABLE TO GET - ITS OK TO HOLD FLUIDS UNTIL MORNING. ENC PO FLUIDS. PT DID WELL AND TOLERATED ONE CUP OF WATER WITH ASST VERY SLOWLY FOLLOWING SWALLOWING PRECAUTIONS. TURNED PT ORDERED. INC OF LARGE AMOUNTS OF URINE. BARRIER CREAM APPLIED. TURNED PT USING PILLOWS TO KEEP HIM OFF OF HIS BOTTOM AND FOR COMFORT. PT SLEEPING WELL AT THIS TIME. WILL CONTINUE TO MONITOR FREQUENTLY.
[2021-10-26 05:11] VITALS: BP 176/80
--- NOTE | 2021-10-26 06:20 | NUR ---
HOUSE SUP RESTARTED PT IV IN RIGHT HAND. NS IS NOW RUNNING AGAIN AT 100ML/HR.
[2021-10-26 08:30] VITALS: BP 166/96
--- NOTE | 2021-10-26 13:35 | NUR ---
Team meeting, recommendation: diet mech soft, chopped with thin liquids. needs queuing during ADL's. renato hose for edema and elevate legs. Re team, cont. therapy with possible dc on 11/03/21.
[2021-10-26 21:35] VITALS: BP 174/86
--- NOTE | 2021-10-27 00:02 | NUR ---
PT ALERT AND ORIENTED X 1. VERY [place]. INCONT OF URINE IN LARGE AMTS. PT TOOK HS MEDS IN APPLESAUCE WITHOUT DIFFICULTY. GENERALIZED EDEMA NOTED. PT DENIES PAIN OR DISCOMFORT. BED ALARM ON FOR SAFETY. PT APPEARS TO BE SLEEPING ON HOURLY ROUNDS.
[2021-10-27 05:15] VITALS: BP 169/87
[2021-10-27 08:00] VITALS: BP 156/84
--- NOTE | 2021-10-27 14:23 | NUR ---
PT REMAINS ALERT & ORIENTED X 1. CONTINUES TO BE CONFUSED AND IMPULSIVE. GOT OUT OF BED BY SELF, SETTING OFF BED ALARM. WHEN STAFF HAD ENTERED THE ROOM, PT HAD ALREADY TRANSFERRED HIMSELF TO W/C. REMINDED PT AGAIN TO CALL WHEN NEEDING TO GET OOB. ALSO HAD A LARGE INCONTINENT BM THIS AFTERNOON.
[2021-10-27 20:18] VITALS: BP 155/91
--- NOTE | 2021-10-28 01:22 | NUR ---
PT ASSESSMENT COMPLETED AND VSS. MEDS GIVEN ORDERED AND WELL TOLERATED. FALL PRECAUTIONS IN PLACE. ASST WITH REPOSITION FOR COMFORT. INC OF LARGE AMOUNTS OF YELLOW URINE. YESSENIA CARE PROVIDED. PT SLEEPING WELL. WILL CONTINUE TO MONITOR FREQUENTLY.
[2021-10-28 06:03] VITALS: BP 152/85
[2021-10-28 06:08] LABS: ABSOLUTE NEUTROPHILS 4.2 thou/uL (1.4-8.2); BASOPHILS 0.5 % (0.0-2.0); EOSINOPHILS 1.8 % (0.0-3.0); HEMATOCRIT 37.8 % (42.0-52.0); HEMOGLOBIN 12.3 gm/dL (14.0-18.0); LYMPHOCYTES 25.2 % (24.0-44.0); MCHC 32.6 g/dL (28.0-37.0); MONOCYTES 12.9 % (1.0-8.0); PLATELET COUNT 192 thou/uL (150-400); POLYS 59.6 % (36.0-66.0); RBC 3.98 mil/uL (4.50-6.00)
[2021-10-28 06:20] LABS: CALCIUM 8.8 mg/dL (8.5-10.1); CREATININE 1.3 mg/dL (0.7-1.3); MAGNESIUM 2.1 mg/dL (1.8-2.4); POTASSIUM 4.1 mmol/L (3.5-5.1)
[2021-10-28 08:00] VITALS: BP 162/88
--- NOTE | 2021-10-28 16:35 | NUR ---
PT HAD ANOTHER BOWEL MOVEMENT TODAY. IS NOT EATING VERY WELL, STATING HE DOESN'T CARE TOO MUCH FOR THE FOOD. WILL CONTINUE TO MONITOR.
[2021-10-28 19:50] VITALS: BP 160/94
--- NOTE | 2021-10-29 02:18 | NUR ---
ASSUMED CARE AT 1920 OF 10/28. PATIENT IS A&O TO SELF, ABLE TO MAKE NEEDS KNOWN. PATIENT SEEMED ANXIOUS AND RESTLESS AT HS. PATIENT WAS TURNING ROOM LIGHT ON AND THEN YELLING FOR STAFF TO COME IN AND TURN LIGHT OFF REPEATEDLY. NURSE ASKED PATIENT YES OR NO QUESTIONS TO FIGURE OUT SOURCE OF PATIENT'S RESTLESSNES, AND PATIENT AGREED TO HAVING A HARD TIME FALLING ASLEEP. PRN SEROQUEL ADMINISTERED TO HELP PATIENT CALM DOWN. PATIENT WAS ABLE TO FALL ASLEEP, AND IS SLEEPING SOUNDLY. INCONTINENT OF LARGE AMOUNT OF URINE, PERICARE PROVIDED AND PADS CHANGED. ASSISTED WITH REPOSITIONING USING PILLOWS. FALL PRECAUTIONS IN PLACE, CALL LIGHT WITHIN REACH. WILL CONTINUE TO MONITOR.
[2021-10-29 08:00] VITALS: BP 153/90
--- NOTE | 2021-10-29 17:41 | NUR ---
PT ONLY INCONTINENT OF URINE X 1 THIS SHIFT. OTHERWISE HAS BEEN CALLING WHEN NEEDING TO VOID. DR. VARGAS WAS CALLED AND SOMETHING STRONGER FOR SLEEP WAS REQUESTED. OBTAINED ORDER FOR SEROQUEL 25MG Q 6 HRS PRN INSOMNIA.
[2021-10-29 20:31] VITALS: BP 166/98
--- NOTE | 2021-10-30 05:31 | NUR ---
ASSUMED CARE AT 1915 OF 10/29. PATIENT IS A&O TO SELF. NO C/O OF PAIN EXHIBITED BY PATIENT. HS SEROQUEL AND PRN MELATONIN ADMINISTERED AT HS, AND PATIENT WAS ABLE TO FALL ASLEEP, AND STAY ASLEEP FOR LONGER. 2 EPISODES OF BLADDER INCONTINENCE THIS SHIFT, PERICARE PROVIDED AND BED LINENS CHANGED. PATIENT REMINDED TO CALL FOR ASSITANCE WHEN NEEDING TO USE THE URINAL, AND WAS ABLE TO DO SO A COUPLE TIMES. ASSISTED WITH REPOSITIONING TOLERATED. RIGHT HAND PERIPHERAL IV WAS DISCONTINUED BECAUSE IT WAS NO LONGER FLUSHING. 22G CATHETER TIP INTACT REMOVED FROM SITE,PRESSURE APPLIED, SMALL AMOUNT OF DRIED BLOOD ON SITE CLEANED AND DRY DRESSING APPLIED. PATIENT TOLERATED PROCEDURE WELL. FALL PRECAUTIONS IN PLACE, CALL LIGHT WITHIN REACH. WILL CONTINUE TO MONITOR.
[2021-10-30 07:52] VITALS: BP 166/86
--- NOTE | 2021-10-30 18:33 | NUR ---
PT PROGRESSING TOWARDS GOAL, A&OX2-3, FALL PRECAUTIONS MAINTAINED, URINAL USED AT BEDSIDE DURING THE DAY.
[2021-10-30 21:32] VITALS: BP 145/75
--- NOTE | 2021-10-31 01:10 | NUR ---
PT ASSESSMENT COMPLETED AND VSS. MEDS GIVEN ORDERED AND WELL TOLERATED. FALL PRECAUTIONS IN PLACE. PTS SUPPORTIVE DAUGHTER AT BEDSIDE. DAUGHTER ASKED IF PT COULD HAVE ANOTHER SWALLOW EVAL SOON BEFORE D/C HOME. ASST WITH REPOSITION. VOIDING PER URINAL. DENIES NEEDS. SLEEPING WELL. WILL CONTINUE TO MONITOR FREUQENTLY.
[2021-10-31 04:11] LABS: ABSOLUTE NEUTROPHILS 4.5 thou/uL (1.4-8.2); BASOPHILS 0.4 % (0.0-2.0); EOSINOPHILS 2.2 % (0.0-3.0); HEMATOCRIT 35.8 % (42.0-52.0); HEMOGLOBIN 11.9 gm/dL (14.0-18.0); LYMPHOCYTES 23.1 % (24.0-44.0); MCH 31.6 pg (26.0-34.0); MCHC 33.2 g/dL (28.0-37.0); MONOCYTES 14.6 % (1.0-8.0); PLATELET COUNT 167 thou/uL (150-400); POLYS 59.7 % (36.0-66.0); RBC 3.77 mil/uL (4.50-6.00); RDW 13.8 % (10.5-14.5); WBC 7.5 thou/uL (4.0-11.0)
[2021-10-31 05:38] LABS: CALCIUM 8.5 mg/dL (8.5-10.1); CREATININE 1.5 mg/dL (0.7-1.3); MAGNESIUM 2.3 mg/dL (1.8-2.4); POTASSIUM 4.2 mmol/L (3.5-5.1)
[2021-10-31 11:25] VITALS: BP 127/65
--- NOTE | 2021-10-31 14:59 | NUR ---
SEROQUEL DECREASED TO 25MG Q HS PRN PER PT'S DAUGHTERS REQUEST. FLUIDS PUSHED. HELD 1400 HYDRALAZINE BASED ON PARAMETERS.
--- NOTE | 2021-10-31 16:36 | NUR ---
cm notified by [employer] that family would like list of hh companies. CM delivered hh list of choices, no family in the room, cm left it by his note pad by the window. Claribel is working with physical therapy in the gym. Will cont following as needed.
[2021-10-31 20:00] VITALS: BP 138/72
--- NOTE | 2021-11-01 01:17 | NUR ---
PT ASSESSMENT COMPLETED AND VSS. MEDS GIVEN ORDERED AND WELL TOLERATED. FALL PRECAUTIONS IN PLACE. INC OF URINE AT TIMES. OTHERWISE PT USES A URINAL WITH ASST. ASST WITH REPOSITION USING PILLOWS FOR COMFORT. BARRIER CREAM APPLIED TO BOTTOM. PT SLEEPING WELL AT THIS TIME. WILL CONTINUE TO MONITOR FREQUENTLY.
[2021-11-01 05:56] VITALS: BP 138/68
--- NOTE | 2021-11-01 11:27 | NUR ---
cm followed up with daughter dacia via phone call, cm re checking to see if family have picked company for cm to send referral on. Dacia i will get it today and what time will he need to be picked on saturday ? per dacia. CM re-education that have dc is on 11/03/20. Family works that day and will get back in touch with cm on and what time family will be able to pick him up on thur 11/03/21.
--- NOTE | 2021-11-01 14:36 | NUR ---
PATIENT IS ALERT, AND ORIENTED X 1, HE IS FORGETFUL, CONFUSED AT TIMES, VERY [place]. PATIENT TOOK ALL MEDICATION WHOLE IN APPLE SOURCE WITHOUT DIFFICULTY, HE IS EATING MEALS, AND DRINKING FLUID FAIRLY WELL. PATIENT IS TURNED NEEDED. LCTA, RESP EVEN/UNLABORED, NO SOA/CYANOSIS NOTED, PO FLUID ENCOURAGED. PATIENT DENIES HAVING PHYSICAL PAIN. INCONTINENT CARE PROVIDED PER STAFF. PATIENT HAD MED BOWEL MOVEMENT THIS MORNING PER STAFF, GOOD PERICARE GIVEN. 1400HR HYDRALAZINE NOT GIVEN DUE TO SBP LESS THAN 130, (125/64). PATIENT CURRENTLY IN BED TAKING A NAP. NO SIGN OF ACUTE DISTRESS NOTED, CALL LIGHT IN REACH, WILL MONITOR FOR SAFETY.
[2021-11-01 19:57] VITALS: BP 144/73
--- NOTE | 2021-11-02 04:46 | NUR ---
ASSUMED CARE AT 1915 OF 11/01. PATIENT RECEIVED SLEEPING IN BED. NO C/O PAIN REPORTED BY PATIENT. PATIENT HAS BEEN USING CALL LIGHT TO REQUEST TO USE THE URINAL. BP AT HS WAS 144/73, SCHEDULED HYDRAZALINE ADMINISTERED, NO PRN DOSE REQUIRED. ASSITED WITH REPOSITIONING. FALL PRECAUTIONS IN PLACE, CALL LIGHT WITHIN REACH. WILL CONTINUE TO MONITOR.
[2021-11-02 06:00] VITALS: BP 137/77
[2021-11-02 08:00] VITALS: BP 132/92
--- NOTE | 2021-11-02 12:59 | NUR ---
Team meeting, recommendation: mod to severe memory and cognitions. diet regular with thin liquids. Will need 24/ supervision. family to assist with medication and finances. ( pt, ot, st, and nursing). DC 11/03/21
--- NOTE | 2021-11-02 19:16 | NUR ---
PT REFUSED SUPPER THIS EVENING STATING HE WASN'T HUNGRY.
[2021-11-02 20:00] VITALS: BP 136/73
--- NOTE | 2021-11-03 03:23 | NUR ---
[facility] WAS RESUMED AT 1900. HE IS ORIENTED TO SELF. HE IS A STAND BY ASSIT WITH WALKER.DENIES ANY DISCOMFORT, LUNGS ARE CLEAR, BS ACTIVE X4 QUADS, HE TOOK HIS MEDS WHOLE. BED IS LOW, LOCKED AND ALARMED. QHOURLY CHECK IS ACTIVE. SHE IS HARD OF HEARING.
[2021-11-03] MEDS ORDERED: DIVALPROEX SOD500 M1 PO (08:04)
[2021-11-03] MEDS ORDERED: LIDOCAINE1 EACH TRANSDERM (08:04)
[2021-11-03] MEDS ORDERED: NORVASC10 MG PO (08:07)
[2021-11-03] MEDS ORDERED: COREG6.25 MG PO (08:07)
[2021-11-03] MEDS ORDERED: HYDRALAZINE 5050 MG PO (08:07)
[2021-11-03 10:06] VITALS: BP 155/84
[2021-11-03] MEDS ORDERED: SEROQUEL 25 MG25 MG PO (13:44)
[2021-11-03 14:17] VITALS: BP 155/84
--- NOTE | 2021-11-03 14:17 | NUR ---
DC orders for HH faxed and confirmed with [facility].
== END 2021-11-03 14:15 | disposition home health service (06) | DRG 947 ==
LOC: 3W 14:45
PROVIDERS: Hospitalist; Nurse Practitioner; Nurse Practitioner Family; Psychiatry & Neurology Psychiatry; ADMIT Physical Medicine & Rehabilitation; ATTEND Physical Medicine & Rehabilitation
PROC: XW033E5 Introduction of Remdesivir Anti-infective into Peripheral Vein, Percutaneous Approach, New Technology Group 5 (ICD-10-PCS; principal; 2021-10-18)
DX: R53.81 Other malaise (principal); G93.41 Metabolic encephalopathy; U07.1 COVID-19; N17.9 Acute kidney failure, unspecified; F31.9 Bipolar disorder, unspecified; I16.0 Hypertensive urgency; F41.9 Anxiety disorder, unspecified; R26.89 Other abnormalities of gait and mobility; E83.42 Hypomagnesemia; N18.9 Chronic kidney disease, unspecified; M48.02 Spinal stenosis, cervical region; E86.0 Dehydration; D69.6 Thrombocytopenia, unspecified; R41.0 Disorientation, unspecified; E56.9 Vitamin deficiency, unspecified; I12.9 Hypertensive chronic kidney disease with stage 1 through stage 4 chronic kidney disease, or unspecified chronic kidney disease
CPT/HCPCS: 10112; 10779